=== PATIENT | female | born 1995 | race Two or more races ===

== ENCOUNTER 2019-08-03 22:21 | Emergency (ER) | payer BC, OTHER ==
[~2019-08-03] VITALS: Ht 167.6 cm; Wt 95.3 kg
[2019-08-03 22:22] VITALS: BP 133/72
--- NOTE | 2019-08-03 22:25 | NUR ---
TO LOBBY A/W BED AMBULATORY
--- NOTE | 2019-08-03 22:58 | NUR ---
PT AMBULATED TO BED 07
[2019-08-03 23:15] VITALS: BP 133/72
--- NOTE | 2019-08-03 23:15 | NUR ---
ASSESSMENT COMPLETE. PT FAMILY AT BEDSIDE. WILL CONTINUE TO MONITOR.
[2019-08-04] MEDS ORDERED: ONDANSETRON 4 MG/2 ML VIAL IVP ONE
[2019-08-04] MEDS ORDERED: NACL 0.9% 1,000 ML IV ONE
[2019-08-04] MEDS ORDERED: MORPHINE SULFATE 4 MG/ML SYR IVP ONE
[2019-08-04 00:12] LABS: APPEARANCE,URINE SL CLOUDY (CLEAR); BILIRUBIN,URINE NEGATIVE (NEGATIVE); BLOOD, URINE NEGATIVE (NEGATIVE); COLOR,URINE YELLOW (YELLOW); LEUKOCYTE ESTERASE ,URINE NEGATIVE (NEGATIVE); NITRITE, URINE NEGATIVE (NEGATIVE); UGLUCOSE NEGATIVE (NEGATIVE)
[2019-08-04 00:13] LABS: BASOPHILS # (AUTO) 0.1 K/uL (0.00-0.22); BASOPHILS % (AUTO) 1.9 % (0.0-2.0); EOSINOPHILS # (AUTO) 0.1 K/uL (0-0.4); EOSINOPHILS % (AUTO) 0.7 % (0.0-4.0); HEMATOCRIT 39.3 % (36-48); HEMOGLOBIN 12.7 g/dL (12.0-16.0); LYMPHOCYTES # (AUTO) 0.6 K/uL (2.5-16.5); LYMPHOCYTES % (AUTO) 8.6 % (20.5-51.1); MEAN CORPUSCULAR HEMOGLOBIN 28 pg (27-31); MEAN CORPUSCULAR HGB CONC 32 g/dL (33-37); MEAN CORPUSCULAR VOLUME 86.8 fL (80-94); MONOCYTES # (AUTO) 0.6 K/uL (0.8-1.0); MONOCYTES % (AUTO) 7.9 % (1.7-9.3); NEUTROPHILS % (AUTO) 80.9 % (42.2-75.2); PLATELET COUNT (AUTO) 271 K/uL (140-450); RED BLOOD CELL COUNT(AUTO) 4.52 MIL/uL (4.20-5.40); RED CELL DISTRIBUTION WIDTH 13.8 % (11.6-13.7); WHITE BLOOD COUNT (AUTO) 7.4 K/uL (4.8-10.8)
[2019-08-04 00:22] LABS: ANION GAP 16.3 (8-16); CARBON DIOXIDE 25.5 mmol/L (21-32); CREATININE 0.6 mg/dL (0.6-1.3); POTASSIUM 3.8 mmol/L (3.5-5.1)
[2019-08-04 00:27] LABS: ALBUMIN 3.8 g/dL (3.4-5.0); TOTAL BILIRUBIN 0.7 mg/dL (0.0-1.0)
--- NOTE | 2019-08-04 01:38 | NUR ---
US PERFORMED BEDSIDE
--- NOTE | 2019-08-04 02:10 | NUR ---
PT REPORTS "FEELING BETTER". ERMD MADE AWARE
--- NOTE | 2019-08-04 02:16 | NUR ---
Patient discharged with v/s stable. Written and verbal after care instructions given and explained. Patient verbalized understanding. Ambulatory with steady gait. All questions addressed prior to discharge. Advised to follow up with PMD.
== END 2019-08-04 02:16 | disposition home or self-care (01) ==
LOC: MED 22:21
DX: K29.70 Gastritis, unspecified, without bleeding (principal)
CPT/HCPCS: 36415; 76705; 80053; 81003; 81025; 82150; 83690; 85025; 96361; 96374; 96375; 99284; J2270; J2405; J7030; Q0092

== ENCOUNTER 2019-10-09 00:36 | Emergency (ER) | payer OTHER ==
[~2019-10-09] VITALS: Ht 167.6 cm; Wt 93.0 kg
[2019-10-09 00:39] VITALS: BP 121/63
[2019-10-09] MEDS ORDERED: ALUMINUM HYD/MAG/SIMETHICONE 30 ML UDC PO ONE (00:55)
[2019-10-09] MEDS ORDERED: ONDANSETRON 4 MG/2 ML VIAL IVP ONE (00:55)
[2019-10-09] MEDS ORDERED: MORPHINE SULFATE 2 MG/ML SYR IVP ONE (00:55)
[2019-10-09] MEDS ORDERED: LIDOCAINE VISCOUS 2% 20 ML UDC PO ONE (00:55)
[2019-10-09] MEDS ORDERED: NACL 0.9% 1,000 ML IV ONE ×2 (00:55→02:50)
[2019-10-09 01:22] LABS: ALBUMIN 3.8 g/dL (3.4-5.0); ANION GAP 15.2 (8-16); CARBON DIOXIDE 28.2 mmol/L (21-32); CREATININE 0.7 mg/dL (0.6-1.3); POTASSIUM 3.4 mmol/L (3.5-5.1); TOTAL BILIRUBIN 0.5 mg/dL (0.0-1.0)
[2019-10-09] MEDS ORDERED: diphenhydrAMINE 50 MG/ML VIAL IVP ONE (01:45)
[2019-10-09 01:48] LABS: BASOPHILS # (AUTO) 0.1 K/uL (0.00-0.22); BASOPHILS % (AUTO) 0.4 % (0.0-2.0); EOSINOPHILS # (AUTO) 0.1 K/uL (0-0.4); EOSINOPHILS % (AUTO) 0.7 % (0.0-4.0); HEMATOCRIT 39.8 % (36-48); HEMOGLOBIN 12.9 g/dL (12.0-16.0); LYMPHOCYTES # (AUTO) 1.8 K/uL (2.5-16.5); LYMPHOCYTES % (AUTO) 13.3 % (20.5-51.1); MEAN CORPUSCULAR HEMOGLOBIN 28 pg (27-31); MEAN CORPUSCULAR HGB CONC 32 g/dL (33-37); MEAN CORPUSCULAR VOLUME 86.4 fL (80-94); MONOCYTES # (AUTO) 0.7 K/uL (0.8-1.0); MONOCYTES % (AUTO) 5.5 % (1.7-9.3); NEUTROPHILS # (AUTO) 10.5 K/uL (1.8-7.7); NEUTROPHILS % (AUTO) 80.1 % (42.2-75.2); PLATELET COUNT (AUTO) 326 K/uL (140-450); RED BLOOD CELL COUNT(AUTO) 4.61 MIL/uL (4.20-5.40); WHITE BLOOD COUNT (AUTO) 13.2 K/uL (4.8-10.8)
[2019-10-09 03:45] VITALS: BP 130/68
== END 2019-10-09 03:46 | disposition home or self-care (01) ==
LOC: MED 00:36
DX: R10.11 Right upper quadrant pain (principal); R11.2 Nausea with vomiting, unspecified
CPT/HCPCS: 36415; 74177; 80053; 81025; 82150; 83690; 85025; 96361; 96374; 96375; 99285; J1200; J2270; J2405; J7030; Q9967

== ENCOUNTER 2020-11-06 07:14 | Emergency (ER) | payer OTHER ==
[~2020-11-06] VITALS: Ht 167.6 cm; Wt 96.2 kg
[2020-11-06 07:18] VITALS: BP 141/86
--- NOTE | 2020-11-06 07:25 | NUR ---
Patient ambulated to bed 07 with steady/even gait.
--- NOTE | 2020-11-06 07:27 | NUR ---
Dr. Bishop is evaluating the patient at bedside.
--- NOTE | 2020-11-06 07:34 | NUR ---
24 y/o F coming in from home with c/c abdominal pain x 2 years. Patient states right upper quadrant abdominal pain, reports 8/10 sharp/intermittent, non-radiating pain. Patient states chronic pain, however, worsen so she wanted evaluation. Patient denies any N/V/D, constipation, urinary symptoms, SOB, chest pain, dizziness, headache, weakness, fever. States chills x 1 day. Last BM today normal/semi-formed. Bowel sounds normoactive x 4 quadrants. Abdomen soft/round. PMH/Meds/Sx: Denies NKA
[2020-11-06] MEDS ORDERED: KETOROLAC 60 MG/2 ML VIAL IM ONE (07:35)
[2020-11-06] MEDS ORDERED: ACET-8386 PO (07:41)
[2020-11-06] MEDS ORDERED: IBUP-2213 PO (07:41)
[2020-11-06] MEDS ORDERED: OMEP40EC24 PO (07:41)
[2020-11-06 07:48] VITALS: BP 141/86
--- NOTE | 2020-11-06 07:48 | NUR ---
Patient discharged with v/s stable. Written and verbal after care instructions given and explained. Patient alert, oriented and verbalized understanding of instructions. Ambulatory with steady gait. All questions addressed prior to discharge. ID band removed. Patient advised to follow up with PMD. Rx of Ibuprofen, Hydrocodone/Acetaminophen, Omeprazole given. Patient educated on indication of medication including possible reaction and side effects. Opportunity to ask questions provided and answered.
--- NOTE | 2020-11-06 07:52 | NUR ---
Patient states pain "slowly coming down." Rates 4/10 at this time.
== END 2020-11-06 07:52 | disposition home or self-care (01) ==
LOC: MED 07:14
DX: R10.11 Right upper quadrant pain (principal)
CPT/HCPCS: 81002; 81025; 96372; 99283; J1885